=== PATIENT | female | born 1980 | race Caucasian/White ===

== ENCOUNTER 2017-05-15 15:00 | Observation (INO) | payer BC ==
[~2017-05-15] VITALS: Ht 165.1 cm; Wt 84.4 kg
[2017-05-15] MEDS ORDERED: NS IV 1000 ML 1,000 ML ONE (15:19)
[2017-05-15] MEDS ORDERED: ONDANSETRON 4 MG/2 ML (SDV) Z0FRAN ONE (15:20)
[2017-05-15] MEDS ORDERED: PANTOPRAZOLE 40 MG/10 ML (PROTONIX) VIAL ONE (15:21)
[2017-05-15] MEDS ORDERED: fentaNYL INJECTION 100 MCG/2 ML AMP ONE (15:22)
[2017-05-15] MEDS ORDERED: ONDA4TAB8 PO (15:45)
[2017-05-15] MEDS ORDERED: PROM25TA14 PO (15:45)
[2017-05-15 15:51] LABS: BASOPHILS % (AUTO) 0 % (0-10); EOSINOPHILS # (AUTO) 0.1 10^3/uL (0.0-0.3); EOSINOPHILS % (AUTO) 2 % (0-10); LYMPHOCYTES % (AUTO) 31 % (12-44); MEAN CORPUSCULAR HEMOGLOBIN 31 PG (25-34); MEAN CORPUSCULAR HGB CONC 34 G/DL (32-36); MEAN CORPUSCULAR VOLUME 90 FL (80-99); MEAN PLATELET VOLUME 11.8 FL (7.4-10.4); MONOCYTES # (AUTO) 0.7 X 10^3 (0.0-1.0); MONOCYTES % (AUTO) 11 % (0-12); NEUTROPHILS # (AUTO) 3.6 X 10^3 (1.8-7.8); NEUTROPHILS % (AUTO) 56 % (42-75); PLATELET COUNT 180 10^3/uL (130-400); RED BLOOD COUNT 4.87 10^6/uL (4.35-5.85); RED CELL DISTRIBUTION WIDTH 14.4 % (10.0-14.5); WHITE BLOOD COUNT 6.5 10^3/uL (4.3-11.0)
[2017-05-15 16:04] VITALS: BP 112/48
[2017-05-15 16:08] LABS: ALANINE AMINOTRANSFERASE 81 U/L (0-55); ALBUMIN 4.1 GM/DL (3.2-4.5); ANION GAP 18 MMOL/L (5-14); ASPARTATE AMINO TRANSFERASE 68 U/L (5-34); BILIRUBIN,TOTAL 0.7 MG/DL (0.1-1.0); BLOOD UREA NITROGEN 10 MG/DL (7-18); BUN/CREATININE RATIO 14; CALCIUM 9.6 MG/DL (8.5-10.1); CARBON DIOXIDE 19 MMOL/L (21-32); CHLORIDE 104 MMOL/L (98-107); GFR ESTIMATED > 60; GLUCOSE 77 MG/DL (70-105); POTASSIUM 3.3 MMOL/L (3.6-5.0); SODIUM 141 MMOL/L (135-145); TOTAL PROTEIN 7.6 GM/DL (6.4-8.2)
[2017-05-15] MEDS ORDERED: ONDANSETRON 4 MG/2 ML (SDV) Z0FRAN IV NR (16:09)
[2017-05-15] MEDS ORDERED: PANTOPRAZOLE 40 MG/10 ML (PROTONIX) VIAL IV NR (16:10)
[2017-05-15] MEDS ORDERED: LORazepam INJ 2 MG/ML (ATIVAN) VIAL IV PRN (16:15)
[2017-05-15] MEDS: NS IV 1000 ML 1,000 ML IV SCH ×3 (16:17→19:26)
[2017-05-15] MEDS: PROMETHAZINE INJ 25 MG/ML (PHENERGAN) AMP IV PRN ×2 (16:22→19:26)
--- NOTE | 2017-05-15 16:24 | History & Physicial ---
History of Present Illness History of Present Illness Reason for visit/HPI This is a 36 year old female who was seen in the office today with morbid obesity and medical comorbidities related to obesity including diabetes and GERD. She is status post laparoscopic gastric sleeve resection on March 27, 2017 at [facility]. She reports today with complaints of nausea and vomiting for the past 2 1/2 weeks. She reports that over the last 12 days she has not been able to eat or drink without vomiting. She reports that she has tried different anti-nausea medications without relief. She reports that she presented to [facility] last week and received a liter of IV fluids as well as a CT scan which was unremarkable. She reports that despite getting fluids her N/V has continued. She denies any fever/chills as well as no abdominal pain. She also reported that she had a hiatal hernia repair with her gastric sleeve surgery. Date of Admission May 15, 2017 at 15:00 Time Seen by Provider: 14:00 I consulted on this patient on 05/15/17 16:18 Attending Physician Aster Devi MD Admitting Physician Sydney Gold MD Consult Allergies and Home Medications Allergies Coded Allergies: codeine (Unverified Allergy, Unknown, 05/15/17) morphine (Unverified Allergy, Unknown, 05/15/17) Home Medications Ondansetron 4 Mg Tab.rapdis, 4 MG PO Q6H PRN for NAUSEA/VOMITING-1ST LINE, ( Reported) ALTERNATING WITH PROMETHAZINE Promethazine HCl 25 Mg Tablet, 25 MG PO EVERY 6-8 HOURS PRN for NAUSEA/VOMITING- 1ST LINE, (Reported) ALTERNATING WITH ONDANSETRON Past Ijvxjto-Fkcmnj-Cgejdp Hx Patient Social History Smoking Status: Current Everyday Smoker Recent Foreign Travel: No Contact w/other who traveled: No Recent Infectious Disease Expo: No Surgeries HX Surgeries: Yes Surgeries: Abdominal (Lap Gastric Sleeve), Bladder Surgery (Bladder Mesh), Gallbladder, Hysterectomy (complete), Tonsillectomy Neurological Hx Neurological Disorders: Yes (Hand Tremors) Gastrointestinal Gastrointestinal Disorders: Gastroesophageal Reflux Endocrine Endocrine Disorders: Diabetes, Non-Insulin dep Constitutional: no symptoms reported EENTM: no symptoms reported Respiratory: no symptoms reported Cardiovascular: no symptoms reported Gastrointestinal: nausea, vomiting Genitourinary: decreased output Musculoskeletal: no symptoms reported Skin: no symptoms reported Psychiatric/Neurological: No Symptoms Reported All Other Systems Reviewed Negative Unless Noted: Yes Physical Exam Vital Signs Vital Sign - Last 12Hours 05/15/17 05/15/17 15:56 16:04 Temp 98.4 Pulse 86 Resp 22 B/P (MAP) 112/48 Pulse Ox 98 O2 Delivery Room Air Capillary Refill : General Appearance: No Apparent Distress, WD/WN HEENT: PERRL/EOMI Neck: Full Range of Motion, Normal Inspection, Non Tender, Supple Respiratory: Chest Non Tender, Lungs Clear, Normal Breath Sounds, No Accessory Muscle Use, No Respiratory Distress Cardiovascular: Regular Rate, Rhythm, No Edema, No Gallop, No JVD, No Murmur, Normal Peripheral Pulses Gastrointestinal: Normal Bowel Sounds, No Organomegaly, No Pulsatile Mass, Non Tender, Soft Back: Normal Inspection Extremity: Normal Capillary Refill, Normal Inspection, Normal Range of Motion, Non Tender, No Calf Tenderness, No Pedal Edema Neurologic/Psychiatric: Alert, Oriented x3, Normal Mood/Affect Skin: Normal Color, Warm/Dry Lymphatic: No Adenopathy Assessment/Plan Assessment and Plan A 36 year old female with morbid obesity and medical comorbidities related to obesity including diabetes and GERD, who is S/P Laparoscopic gastric sleeve resection on March 27, 2017 in [facility]. She is having persistent Nausea and vomiting as well as dehydration with low urine output. At this time we will admit patient for IV fluid bolus and continued hydration as well as IV nausea medication. We will also start Protonix IV and Levsin IV. She may have clear liquid diet as tolerated and will check CBC and CMP. We will make patient NPO after 0400 on 05/16/17 and schedule her for an EGD with possible balloon dilation tomorrow. Problems: Copy Copies To 1: ASTER DEVI MD; SYDNEY GOLD MD, DUSTIN L APRN May 15, 2017 16:24
[2017-05-15] MEDS: fentaNYL INJECTION 100 MCG/2 ML AMP IV PRN ×2 (17:05→19:45)
[2017-05-15 19:12] VITALS: BP 95/55
[2017-05-15] MEDS ORDERED: ONDANSETRON 4 MG/2 ML (SDV) Z0FRAN IV PRN (20:00)
[2017-05-15] MEDS: METOCLOPRAMIDE INJ 10 MG/2 ML (REGLAN) IV PRN (20:04)
[2017-05-15] MEDS: PANTOPRAZOLE 40 MG/10 ML (PROTONIX) VIAL IV SCH (20:56)
[2017-05-16] VITALS: BP 87/54
[2017-05-16] MEDS: NS IV 1000 ML 1,000 ML IV SCH ×3 (03:12→20:25)
[2017-05-16 04:00] VITALS: BP 91/60
[2017-05-16] MEDS: PROMETHAZINE INJ 25 MG/ML (PHENERGAN) AMP IV PRN ×2 (06:16→13:24)
[2017-05-16] MEDS: fentaNYL INJECTION 100 MCG/2 ML AMP IV PRN ×3 (06:25→22:16)
[2017-05-16 07:49] VITALS: BP 100/66
[2017-05-16] MEDS: PANTOPRAZOLE 40 MG/10 ML (PROTONIX) VIAL IV SCH ×2 (08:41→20:25)
[2017-05-16] MEDS: METOCLOPRAMIDE INJ 10 MG/2 ML (REGLAN) IV PRN (08:54)
--- NOTE | 2017-05-16 09:40 | Progress Note-Pre Operative ---
Pre-Operative Progress Note H&P Reviewed The H&P was reviewed, patient examined and no changes noted. Date Seen by Provider: May 16, 2017 Time Seen by Provider: : Date H&P Reviewed: May 16, 2017 Time H&P Reviewed: :30 Pre-Operative Diagnosis: persistent nausea and vomiting ASTER DEVI MD May 16, 2017 9:40 am
--- NOTE | 2017-05-16 09:40 | Conscious Sedation/ASA ---
Conscious Sedation Pre-Proced Time Reviewed: 09:30 ASA Class: 2 Airway Mallampati Classification: (big sandy appropriate class) I. II. III, IV Lungs Heart ASA score ASA 1: a normal healthy patient ASA 2: a patient with a mild systemic disease (mid diabetes, controlled hypertension, obesity ASA 3: a patient with a severe systemic disease that limits activity (angina , COPD, prior Myocardial infarction) ASA 4: a patient with an incapacitating disease that is a constant threat to life (CHF, renal failure) ASA 5: a moribund patient not expected to survive 24 hrs. (ruptured aneurysm) ASA 6: a declared brain patient whose organs are being harvested. For emergent operations, add the letter E after the classification Grade 2 Sedation Plan: Analgesia, Amnesia, Plan communicated to team members, Discussed options with patient/fam, Discussed risks with patient/fam Note The patient is an appropriate candidate to undergo the planned procedure, sedation, and anesthesia. The patient immediately re-assessed prior to indication. ASTER DEVI MD May 16, 2017 9:40 am
[2017-05-16 12:00] VITALS: BP 98/64
[2017-05-16 15:40] VITALS: BP 97/53
[2017-05-16] MEDS ORDERED: fentaNYL INJECTION 100 MCG/2 ML AMP ONE (16:22)
[2017-05-16] MEDS ORDERED: LIDOCAINE JELLY 2% (XYLOCAINE) 5 ML TUBE ONE (16:22)
[2017-05-16] MEDS ORDERED: HURRICAINE EXT TUBE (BENZOCAINE) ONE (16:23)
[2017-05-16] MEDS ORDERED: MIDAZOLAM 2 MG/2 ML (VERSED) VIAL ONE ×5 (16:23→17:16)
[2017-05-16] MEDS ORDERED: ONDANSETRON 4 MG/2 ML (SDV) Z0FRAN ONE (16:40)
[2017-05-16] MEDS: fentaNYL INJECTION 100 MCG/2 ML AMP IVP PRN ×2 (16:45→16:47)
[2017-05-16] MEDS: MIDAZOLAM 2 MG/2 ML (VERSED) VIAL IVP PRN ×5 (16:46→17:21)
[2017-05-16] MEDS ORDERED: HURRICAINE EXT TUBE (BENZOCAINE) XX PRN (17:00)
[2017-05-16] MEDS ORDERED: LIDOCAINE JELLY 2% (XYLOCAINE) 5 ML TUBE MM PRN (17:00)
--- NOTE | 2017-05-16 17:49 | Progress Note-Post Operative ---
Post-Operative Progess Note Surgeon (s)/Filling Carrier (s) Surgeon ASTER DEVI MD Filling Carrier: none Pre-Operative Diagnosis persistent nausea and vomiting Post-Operative Diagnosis reflux esophagtitis(class B), severe diffuse gastritis and moderate duodenitis, mild mid gastric stricture. Procedure & Operative Findings Date of Procedure 05/16/17 Procedure Performed/Findings EGD with bx and baloon dilatation. Anesthesia Type CS Estimated Blood Loss Estimated blood loss (mL): minimal Specimens/Packing Specimens Removed antrum, GE jxn ASTER DEVI MD May 16, 2017 5:49 pm
[2017-05-16] MEDS ORDERED: PANT40TA2 PO (17:51)
[2017-05-16] MEDS ORDERED: DEXAINTSOL PO (17:51)
--- NOTE | 2017-05-16 17:52 | Discharge Inst-Surgical ---
D/C Lap Instructions-KIDO New, Converted, or Re-Newed RX: RX on Chart Follow Up Appt in 2 weeks Activity as tolerated start clear liquids and slowly advance diet as tolerated take decadron with zofran, take protonix BID for 2 weeks then daily. Avoid Alcohol, Caffeine, Spicy Okay and Acid foods. Drink 64 fluid oz or more of fluids per day. Symptoms to Report: Fever over 101 degree F, Nausea/Vomiting If any problems/questions: Contact your physician or go to Emergency Room ASTER DEVI MD May 16, 2017 5:52 pm
[2017-05-16] MEDS: DEXAMETHASONE 4 MG/ML SDV (DECADRON) IV SCH (18:57)
[2017-05-16 19:35] VITALS: BP 96/60
[2017-05-17 00:25] VITALS: BP 96/52
[2017-05-17] MEDS: DEXAMETHASONE 4 MG/ML SDV (DECADRON) IV SCH ×2 (01:36→11:05)
[2017-05-17] MEDS: fentaNYL INJECTION 100 MCG/2 ML AMP IV PRN ×4 (01:36→13:26)
[2017-05-17 04:00] VITALS: BP 103/55
[2017-05-17] MEDS: NS IV 1000 ML 1,000 ML IV SCH (07:12)
[2017-05-17 08:30] VITALS: BP 98/65
[2017-05-17] MEDS: PANTOPRAZOLE 40 MG/10 ML (PROTONIX) VIAL IV SCH (08:48)
[2017-05-17 13:00] VITALS: BP 109/68
[2017-05-17] MEDS: PROMETHAZINE INJ 25 MG/ML (PHENERGAN) AMP IV PRN (15:26)
[2017-05-17 16:20] VITALS: BP 109/68
== END 2017-05-17 16:30 | disposition home or self-care (01) ==
LOC: UNDOADMOB 15:00 → 4TH 15:00
PROVIDERS: ADMIT Surgery; ATTEND Surgery
DX: K29.70 Gastritis, unspecified, without bleeding (principal); K29.80 Duodenitis without bleeding; E86.0 Dehydration; K21.9 Gastro-esophageal reflux disease without esophagitis; E66.01 Morbid (severe) obesity due to excess calories; E11.9 Type 2 diabetes mellitus without complications; F17.210 Nicotine dependence, cigarettes, uncomplicated; Z98.84 Bariatric surgery status
CPT/HCPCS: 36415; 80053; 85025

== ENCOUNTER 2017-05-20 20:09 | Inpatient (IN) | payer BC ==
[~2017-05-20] VITALS: Ht 165.1 cm; Wt 84.4 kg
[~2017-05-20 20:09] MED LIST: DEXAINTSOL PO; ONDA4TAB8 PO; PANT40TA2 PO; PROM25TA14 PO
--- NOTE | 2017-05-20 20:25 | ED GI ---
General Chief Complaint: Abdominal/GI Problems Stated Complaint: NAUSEA VOMITING PAIN Source of Information: Patient Exam Limitations: No Limitations History of Present Illness Time Seen By Provider: 20:24 Initial Comments U ER with uncontrollable nausea vomiting and epigastric abdominal pain. She had a laparoscopic gastric sleeve gastrectomy done on March 27 at the [facility]. She also had a hiatal hernia.. The past few days she's had uncontrollable nausea and vomiting to the point that she is not eaten for the past 2-3 days. She denies having much to drink during that timeframe either. She reports epigastric and chest discomfort. She was seen here last week admitted as a direct admit by Dr. Levy. She had EGD done which showed esophageal stricture with dilatation. She does not have trouble swallowing anymore but she has uncontrollable nausea that does not allow her to eat. No fevers or chills. She is passing gas. Timing/Duration: 3-4 Days Severity/Quality: Moderate Location: Generalized Abdomen Radiation: No Radiation Activities at Onset: None Associated Symptoms: Nausea/Vomiting Allergies and Home Medications Allergies Coded Allergies: codeine (Unverified Allergy, Unknown, 05/15/17) morphine (Unverified Allergy, Unknown, 05/15/17) Home Medications Dexamethasone 1 Mg/1 Ml Sandra, 1 TSP PO DAILY PRN for PAIN for 60 Days, Ref 0 Mix 4MG/2.5CC water Prescribed by: ASTER LEVY on 05/16/17 1751 Ondansetron 4 Mg Tab.rapdis, 4 MG PO Q6H PRN for NAUSEA/VOMITING-1ST LINE, ( Reported) ALTERNATING WITH PROMETHAZINE Pantoprazole Sodium 40 Mg Tablet., 40 MG PO DAILY, #90 Prescribed by: ASTER LEVY on 05/16/17 1751 Promethazine HCl 25 Mg Tablet, 25 MG PO EVERY 6-8 HOURS PRN for NAUSEA/VOMITING- 1ST LINE, (Reported) ALTERNATING WITH ONDANSETRON Review of Systems Constitutional: see HPI EENTM: No Symptoms Reported Respiratory: No Symptoms Reported Cardiovascular: See HPI Gastrointestinal: See HPI, Abdominal Pain, Nausea Genitourinary: No Symptoms Reported Musculoskeletal: no symptoms reported Skin: no symptoms reported Psychiatric/Neurological: No Symptoms Reported Endocrine: No Symptoms Reported Hematologic/Lymphatic: No Symptoms Reported Past Ghpajiz-Hyqgsy-Jhwhho Hx Patient Social History Type Used: Cigarettes Recent Foreign Travel: No Contact w/Someone Who Travel: No Recent Hopitalizations: No Immunizations Up To Date PED Vaccines UTD: No Seasonal Allergies Seasonal Allergies: No Surgeries HX Surgeries: Yes Surgeries: Abdominal, Bladder Surgery, Gallbladder, Hysterectomy, Tonsillectomy Neurological Hx Neurological Disorders: Yes (Hand Tremors) Gastrointestinal Gastrointestinal Disorders: Gastroesophageal Reflux, Gall Bladder Disease Endocrine Endocrine Disorders: Diabetes, Non-Insulin dep Family Medical History Family Medial History: Diabetes mellitus Hypertension Myocardial infarction Physical Exam Vital Signs VS - Last 72 Hours, by Label 05/20/17 20:22 Temp 97.5 Pulse 70 Resp 16 B/P (MAP) 132/70 Pulse Ox 98 O2 Delivery Room Air Capillary Refill : General Appearance: WD/WN, no apparent distress HEENT: PERRL/EOMI, normal ENT inspection Respiratory: normal breath sounds, no respiratory distress, no accessory muscle use Gastrointestinal: normal bowel sounds, non tender, soft Extremities: normal range of motion, non-tender Neurologic/Psychiatric: alert, normal mood/affect, oriented x 3 Skin: normal color, warm/dry Progress/Results/Core Measures Results/Orders Lab Results Laboratory Tests Test 05/20/17 20:20 05/20/17 20:27 Range/Units White Blood Count 9.3 4.3-11.0 10^3/uL Red Blood Count 4.90 4.35-5.85 10^6/uL Hemoglobin 15.1 11.5-16.0 G/DL Hematocrit 44 35-52 % Mean Corpuscular Volume 89 80-99 FL Mean Corpuscular Hemoglobin 31 25-34 PG Mean Corpuscular Hemoglobin Concent 35 32-36 G/DL Red Cell Distribution Width 14.1 10.0-14.5 % Platelet Count 181 130-400 10^3/uL Mean Platelet Volume 11.8 H 7.4-10.4 FL Neutrophils (%) (Auto) 56 42-75 % Lymphocytes (%) (Auto) 34 12-44 % Monocytes (%) (Auto) 9 0-12 % Eosinophils (%) (Auto) 1 0-10 % Basophils (%) (Auto) 0 0-10 % Neutrophils # (Auto) 5.3 1.8-7.8 X 10^3 Lymphocytes # (Auto) 3.2 1.0-4.0 X 10^3 Monocytes # (Auto) 0.8 0.0-1.0 X 10^3 Eosinophils # (Auto) 0.1 0.0-0.3 10^3/uL Basophils # (Auto) 0.0 0.0-0.1 10^3/uL Sodium Level 140 135-145 MMOL/L Potassium Level 3.0 L 3.6-5.0 MMOL/L Chloride Level 100 98-107 MMOL/L Carbon Dioxide Level 23 21-32 MMOL/L Anion Gap 17 H 5-14 MMOL/L Blood Urea Nitrogen 17 7-18 MG/DL Creatinine 0.80 0.60-1.30 MG/DL Estimat Glomerular Filtration Rate > 60 BUN/Creatinine Ratio 21 Glucose Level 86 70-105 MG/DL Calcium Level 9.7 8.5-10.1 MG/DL Total Bilirubin 1.1 H 0.1-1.0 MG/DL Aspartate Amino Transf (AST/SGOT) 106 H 5-34 U/L Alanine Aminotransferase (ALT/SGPT) 156 H 0-55 U/L Alkaline Phosphatase 52 40-136 U/L Total Protein 7.4 6.4-8.2 GM/DL Albumin 3.9 3.2-4.5 GM/DL Lipase 140 H 8-78 U/L Urine Color JEOVANY H Urine Clarity SLIGHTLY CLOUDY Urine pH 6.5 5-9 Urine Specific [place] 1.020 1.016-1.022 Urine Protein 2+ H NEGATIVE Urine Glucose (UA) NEGATIVE NEGATIVE Urine Ketones 4+ H NEGATIVE Urine Nitrite POSITIVE H NEGATIVE Urine Bilirubin 3+ H NEGATIVE Urine Urobilinogen 12 H NORMAL MG/DL Urine Leukocyte Esterase 2+ H NEGATIVE Urine RBC (Auto) NEGATIVE NEGATIVE Urine RBC NONE /HPF Urine WBC 5-10 H /HPF Urine Squamous Epithelial Cells 5-10 /HPF Urine Crystals NONE /LPF Urine Bacteria LARGE H /HPF Urine Casts NONE /LPF Urine Mucus MODERATE H /LPF Urine Culture Indicated YES My Orders Orders - CHRISTY ORTEGA APRN Cbc With Automated Diff (05/20/17 20:21) Lipase (05/20/17 20:21) Ua Culture If Indicated (05/20/17 20:21) Comprehensive Metabolic Panel (05/20/17 20:21) Saline Lock/Iv-Start (05/20/17 20:21) Ns Iv 1000 Ml (Sodium Chloride 0.9%) (05/20/17 20:30) Prochlorperazine Injection (Compazine In (05/20/17 20:30) Diphenhydramine Injection (Benadryl Inje (05/20/17 20:30) Scopolamine Patch (Transderm-Scop Patch) (05/20/17 20:45) Urine Culture (05/20/17 20:27) Lorazepam Injection (Ativan Injection) (05/20/17 20:41) Lorazepam Injection (Ativan Injection) (05/20/17 21:00) Medications Given in ED Current Medications Medications Dose Ordered Sig/Quiana Route Start Time Stop Time Status Last Admin Dose Admin Diphenhydramine HCl 25 mg ONCE ONCE IVP 05/20/17 20:30 05/20/17 20:31 DC 05/20/17 20:32 25 MG Lorazepam 0.5 mg ONCE ONCE IVP 05/20/17 21:00 05/20/17 21:01 DC 05/20/17 20:53 0.5 MG Prochlorperazine Edisylate 10 mg ONCE ONCE IV 05/20/17 20:30 05/20/17 20:31 DC 05/20/17 20:33 10 MG Vital Signs/I&O Vital Sign - Last 12Hours 05/20/17 20:22 Temp 97.5 Pulse 70 Resp 16 B/P (MAP) 132/70 Pulse Ox 98 O2 Delivery Room Air Departure Communication Time/Spoke to Admitting Phy: 21:[address] Jimenez. We'll admit the patient, IV antiemetics, pain control, fluids and potassium replacement. Consult Dr. Levy in the morning. Progress Notes 2103-patient has had a dystonic reaction with uncontrollable movements of arms and legs after receiving the Benadryl and Compazine. With 0.5 mg of IV Ativan she would unfortunately need to wait this out. We will admit for the urinary tract infection and pancreatitis Impression Impression: Primary Impression: Urinary tract infection Additional Impressions: Acute pancreatitis Intractable nausea and vomiting Disposition: ADMITTED INPATIENT Condition: Stable Decision to Admit Reason: Admit from ER (General) Decision to Admit/Date: May 20, 2017 Time/Decision to Admit Time: 21:06 Departure-Patient Inst. Referrals: KARMA LAW MD (PCP/Family) Primary Care Physician CHRISTY ORTEGA APRN May 20, 2017 20:25
[2017-05-20 20:27] LABS: BASOPHILS % (AUTO) 0 % (0-10); EOSINOPHILS # (AUTO) 0.1 10^3/uL (0.0-0.3); EOSINOPHILS % (AUTO) 1 % (0-10); LYMPHOCYTES # (AUTO) 3.2 X 10^3 (1.0-4.0); LYMPHOCYTES % (AUTO) 34 % (12-44); MEAN CORPUSCULAR HEMOGLOBIN 31 PG (25-34); MEAN CORPUSCULAR HGB CONC 35 G/DL (32-36); MEAN CORPUSCULAR VOLUME 89 FL (80-99); MEAN PLATELET VOLUME 11.8 FL (7.4-10.4); MONOCYTES # (AUTO) 0.8 X 10^3 (0.0-1.0); MONOCYTES % (AUTO) 9 % (0-12); NEUTROPHILS # (AUTO) 5.3 X 10^3 (1.8-7.8); NEUTROPHILS % (AUTO) 56 % (42-75); PLATELET COUNT 181 10^3/uL (130-400); RED CELL DISTRIBUTION WIDTH 14.1 % (10.0-14.5); WHITE BLOOD COUNT 9.3 10^3/uL (4.3-11.0)
[2017-05-20] MEDS ORDERED: NS IV 1000 ML 1,000 ML IV SCH (20:30)
[2017-05-20] MEDS ORDERED: diphenhydrAMINE 50 MG/ML INJ (BENADRYL) IVP ONE (20:30)
[2017-05-20] MEDS ORDERED: PROCHLORPERAZINE 10 MG/2ML INJ (COMPAZINE) IV ONE (20:30)
[2017-05-20 20:33] LABS: BILIRUBIN,URINE 3+ (NEGATIVE); KETONES,URINE 4+ (NEGATIVE); LEUKOCYTE ESTERASE ,URINE 2+ (NEGATIVE); NITRITE,URINE POSITIVE (NEGATIVE); PH,URINE 6.5 (5-9); PROTEIN,URINE 2+ (NEGATIVE); UROBILINOGEN,URINE 12 MG/DL (NORMAL)
[2017-05-20] MEDS ORDERED: LORazepam INJ 2 MG/ML (ATIVAN) VIAL ONE (20:41)
[2017-05-20] MEDS ORDERED: SCOPOLAMINE 1.5 MG (TRANSDERM-SCOP) PATCH TD ONE (20:45)
[2017-05-20 20:46] LABS: ALANINE AMINOTRANSFERASE 156 U/L (0-55); ALBUMIN 3.9 GM/DL (3.2-4.5); ANION GAP 17 MMOL/L (5-14); ASPARTATE AMINO TRANSFERASE 106 U/L (5-34); BILIRUBIN,TOTAL 1.1 MG/DL (0.1-1.0); BLOOD UREA NITROGEN 17 MG/DL (7-18); BUN/CREATININE RATIO 21; CALCIUM 9.7 MG/DL (8.5-10.1); CARBON DIOXIDE 23 MMOL/L (21-32); CHLORIDE 100 MMOL/L (98-107); GFR ESTIMATED > 60; GLUCOSE 86 MG/DL (70-105); LIPASE 140 U/L (8-78); SODIUM 140 MMOL/L (135-145); TOTAL PROTEIN 7.4 GM/DL (6.4-8.2)
[2017-05-20] MEDS ORDERED: LORazepam INJ 2 MG/ML (ATIVAN) VIAL IVP ONE (21:00)
[2017-05-20 21:45] VITALS: BP 95/58
[2017-05-20] MEDS ORDERED: ONDANSETRON 4 MG/2 ML (SDV) Z0FRAN IV PRN (23:00)
[2017-05-20] MEDS ORDERED: PROMETHAZINE 25 MG (PHENERGAN) SUPP PR PRN (23:00)
[2017-05-20] MEDS ORDERED: SCOPOLAMINE 1.5 MG (TRANSDERM-SCOP) PATCH TOP SCH (23:00)
[2017-05-20] MEDS: cefTRIAXone INJECTION 1,000 MG in NS (IVPB) 50 ML IV SCH (23:11)
[2017-05-20] MEDS: NS W/KCL 40 MEQ/L 1,000 ML IV SCH (23:11)
[2017-05-20] MEDS: PANTOPRAZOLE 40 MG/10 ML (PROTONIX) VIAL IV SCH (23:11)
[2017-05-21] VITALS: BP 100/62
[2017-05-21 04:00] VITALS: BP 90/60
[2017-05-21 05:50] LABS: ALANINE AMINOTRANSFERASE 119 U/L (0-55); ANION GAP 15 MMOL/L (5-14); ASPARTATE AMINO TRANSFERASE 81 U/L (5-34); BILIRUBIN,TOTAL 0.6 MG/DL (0.1-1.0); BLOOD UREA NITROGEN 15 MG/DL (7-18); BUN/CREATININE RATIO 23; CARBON DIOXIDE 20 MMOL/L (21-32); CHLORIDE 108 MMOL/L (98-107); CREATININE SERUM 0.64 MG/DL (0.60-1.30); GFR ESTIMATED > 60; GLUCOSE 73 MG/DL (70-105); LIPASE 132 U/L (8-78); POTASSIUM 3.3 MMOL/L (3.6-5.0); SODIUM 143 MMOL/L (135-145); TOTAL PROTEIN 5.3 GM/DL (6.4-8.2)
[2017-05-21 08:00] VITALS: BP 85/48
[2017-05-21] MEDS: NS W/KCL 40 MEQ/L 1,000 ML IV SCH ×3 (08:19→22:56)
[2017-05-21] MEDS: PANTOPRAZOLE 40 MG/10 ML (PROTONIX) VIAL IV SCH ×2 (08:24→20:23)
[2017-05-21] MEDS: PROMETHAZINE INJ 25 MG/ML (PHENERGAN) AMP IVP PRN (08:35)
[2017-05-21] MEDS ORDERED: PANT40TA3 PO (09:12)
[2017-05-21] MEDS ORDERED: DEXA4TAB PO (09:12)
[2017-05-21] MEDS ORDERED: ONDA4TAB11 PO (09:12)
[2017-05-21 12:00] VITALS: BP 104/68
[2017-05-21] MEDS ORDERED: DEXAMETHASONE PF 10 MG/ML (DECADRON) VIAL IV SCH (12:15)
[2017-05-21] MEDS: ONDANSETRON 4 MG/2 ML (SDV) Z0FRAN IV PRN (12:47)
[2017-05-21] MEDS: THIAMINE 100 MG/ML 2 ML (VITAMIN B-1) VIAL IV SCH (12:49)
[2017-05-21] MEDS: fentaNYL INJECTION 100 MCG/2 ML AMP IV PRN ×2 (14:22→20:23)
[2017-05-21] MEDS: LORazepam INJ 2 MG/ML (ATIVAN) VIAL IVP PRN ×2 (15:27→21:53)
[2017-05-21] MEDS: CATHETER FLUSH 10 ML SYR IV PRN (15:27)
--- NOTE | 2017-05-21 15:29 | History & Physical-Hospitalist ---
HPI History of Present Illness: HPI/Chief Complaint Patient is a 36-year-old white female who presented to the emergency room yesterday complaining of uncontrollable nausea vomiting and epigastric pain. She had had a laparoscopic gastric sleeve on March 27 at [facility] she then began to have difficulties swallowing. She had an admission last week under Dr. Levy for dysphagia and chest discomfort. He performed an EGD and found esophageal inflammation and relative stricture. She then underwent dilatation. She was able to swallow but the nausea soon returned. She had used Zofran ODT 's for or 8 mg and alternated that with the Phenergan 25 mg with little improvement. She was in the emergency room yesterday and had a reaction to Compazine with dystonia. She is also found to have a urinary tract infection. Laboratory suggested a very mild pancreatitis and hepatitis. Source: patient Exam Limitations: no limitations Date Seen 05/21/17 Time Seen by Provider: 15:26 Attending Physician Reema Jimenez Lisa A MD Referring Physician Date of Admission May 20, 2017 at 21:24 Home Medications & Allergies Home Medications Reviewed patient Home Medication Reconciliation Form Allergies Allergies Coded Allergies codeine (Unverified Allergy, Unknown, 05/15/17) morphine (Unverified Allergy, Unknown, 05/15/17) prochlorperazine (Verified Allergy, Unknown, 05/20/17) dystonic reaction Past Bgzaqtb-Gbzsqj-Ifwdfw Hx Patient Social History Alcohol Use: Denies Use Recreational Drug Use: No Smoking Status: Current Everyday Smoker Type Used: Cigarettes Physical Abuse Screen: No Sexual Abuse: No Recent Foreign Travel: No Contact w/other who traveled: No Recent Hopitalizations: No Recent Infectious Disease Expo: No Seasonal Allergies Seasonal Allergies: No Surgeries HX Surgeries: Yes Surgeries: Abdominal, Bladder Surgery, Gallbladder, Hysterectomy, Tonsillectomy Neurological Hx Neurological Disorders: Yes (Hand Tremors) Gastrointestinal Gastrointestinal Disorders: Gastroesophageal Reflux, Gall Bladder Disease Endocrine Endocrine Disorders: Diabetes, Non-Insulin dep Family Medical History Family Hx: Diabetes mellitus Hypertension Myocardial infarction Review of Systems Constitutional: see HPI, malaise EENTM: no symptoms reported Respiratory: no symptoms reported Cardiovascular: no symptoms reported Gastrointestinal: dysphagia, heartburn, nausea, vomiting Genitourinary: no symptoms reported Musculoskeletal: no symptoms reported Skin: no symptoms reported Psychiatric/Neurological: No Symptoms Reported Physical Exam Physical Exam Vital Signs Vital Sign - Last 12Hours 05/20/17 20:22 Temp 97.5 Pulse 70 Resp 16 B/P (MAP) 132/70 Pulse Ox 98 O2 Delivery Room Air Capillary Refill : Less Than 3 Seconds General Appearance: Mild Distress Eyes: Bilateral Eye Normal Inspection HEENT: Normal ENT Inspection Neck: Normal Inspection Respiratory: Chest Non Tender, Lungs Clear, Normal Breath Sounds, No Accessory Muscle Use, No Respiratory Distress Cardiovascular: Regular Rate, Rhythm, No Edema, No Gallop, No JVD Gastrointestinal: Abnormal Bowel Sounds (decreased) Extremity: Normal Capillary Refill, Normal Inspection, Normal Range of Motion, Non Tender, No Calf Tenderness, No Pedal Edema Neurologic/Psychiatric: Alert, Oriented x3, No Motor/Sensory Deficits, Normal Mood/Affect Skin: Normal Color, Warm/Dry Lymphatic: No Adenopathy Comments It is noted that the lipase was modestly elevated at 140/78 and there also was very modest elevation of the ALT and AST. Results Results/Procedures Lab Laboratory Tests 05/20/17 20:20 05/21/17 04:40 Assessment/Plan Admission Diagnosis Urinary tract infection. 2.dysphagia. 3.recent placement of gastric sleeve. 4.intractable nausea and vomiting following this intervention, etiology unclear Assessment and Plan Clear liquid diet. IV fluids. Clinical Quality Measures DVT/VTE Risk/Contraindication: Risk Factor Score Per Nursin RFS Level Per Nursing on Admit: 3=High DENNIS SPENCER MD May 21, 2017 15:29
--- NOTE | 2017-05-21 16:00 | CONSULTATION REPORT ---
DATE OF CONSULTATION: 05/21/2017 ATTENDING PRIMARY CARE PHYSICIAN: Dr. Sydney Gold. Mrs. Paris Ellison is a 36-year-old female who we had seen recently. She has a history of morbid obesity, as well as medical comorbidities including, diabetes and gastroesophageal reflux disease. She is status post gastric sleeve resection on 03/27/2017 at [facility]. She reports that she has had nausea and vomiting for the past 4 weeks. In the past 2 weeks this has been much more severe. She has tried a number of different antinausea medications without any relief. She was admitted recently and started on IV fluids, as well as IV Protonix and antinausea medications. She also underwent an EGD which 05/16/2017 which showed a reflux esophagitis, class B, as well as diffuse gastritis, moderate duodenitis and mild mid gastric stricture which was dilated to 19 mm. She was placed on a clear liquid diet and was able to take in approximately 60 mL of fluid every half-hour. She was then discharged home. She reports that after going home, she did okay for some amount of time; however, she felt recurrence of symptoms including the nausea and vomiting. She states that she tried to take her medications; however, due to the nausea and vomiting wound normally throw up the medications. She does have a history of smoking and states that she did smoke once during the time at home. The majority of what she throws up is saliva and foam. No hematemesis, nor coffee-ground emesis. PAST MEDICAL HISTORY: 1. Gastroesophageal reflux disease. 2. Aau-etshxhc-ugwlwjqpj diabetes. PAST SURGERIES: 1. Laparoscopic gastric sleeve resection. 2. Bladder suspension. 3. Laparoscopic cholecystectomy. 4. Total hysterectomy. 5. Tonsillectomy. ALLERGIES: 1. Codeine 2. morphine MEDICATIONS: 1. Zofran 4 mg q.4 hours p.r.n. 2. Phenergan 12.5 mg every p.r.n. 3. Protonix 40 mg b.i.d. SOCIAL HISTORY: Positive smoke, states that she used to drink alcohol; however, has not been several months. FAMILY HISTORY: Noncontributory. VITAL SIGNS: Temperature 96.3, blood pressure 85/48, pulse 40, respirations 16, pulse ox 97% on room air. REVIEW OF SYSTEMS: This is a guarded female secondary to her nausea and vomiting. She is currently not vomiting and is awake and alert and answers all questions appropriately. She is not experiencing any shortness of breath nor difficulty breathing. Epigastric discomfort including a burning sensation. Persistent frequent episodes of nausea as well as vomiting of saliva foam. No hematemesis, no coffee-ground emesis. A small bowel movement. Weight loss postop. No fever or chills. All other review of systems negative. PHYSICAL EXAMINATION: CHEST: Good breath sounds bilaterally. Clear. HEART: Regular. No murmurs. EXTREMITIES: No lower extremity edema. Negative Willam sign. HEENT: No scleral icterus. No cervical lymphadenopathy. ABDOMEN: Soft, nontender, nondistended. SKIN: Warm and dry. LABS: WBC 9.3, hemoglobin 15.1. Total bilirubin 0.6, AST 81, ALT 119, alkaline phosphatase 37, lipase 132, urine analysis nitrite positive, 2+ leukocyte esterase and large amount of bacteria. ASSESSMENT AND PLAN: 36-year-old female with persistent nausea and vomiting status post gastric sleeve resection. She also has severe dehydration and a urinary tract infection. We will continue with conservative management including IV fluids, as well as IV Zofran, Phenergan and Decadron. We will also proceed with Ativan for her anxiety on a p.r.n. basis. We will also start IV thiamine due to a potential deficiency. Once she does not have any nausea and vomiting and can tolerate liquids, as well as medications, we will discharge her home. The importance of medical compliance was explained to the patient, including definite smoking cessation for this phase of her postop. She also needs to avoid alcohol, caffeinated beverages, as well as spicy, greasy and acidic foods. Over time, these symptoms will resolve on their own. However, at this time, her symptoms are exaggerated due to the surgery itself, as well as severe gastritis. Job ID: [id number] Dictated Date: 05/21/2017 13:02:16 Trade Mark Examiner Date: 05/21/2017 15:38:07/jeet HARVEY
[2017-05-21 16:25] VITALS: BP 113/58
[2017-05-21 19:37] VITALS: BP 106/57
[2017-05-21] MEDS: cefTRIAXone INJECTION 1,000 MG in NS (IVPB) 50 ML IV SCH (22:56)
[2017-05-22] VITALS (7 sets, daily range): BP systolic 85–94; BP diastolic 43–81
[2017-05-22] MEDS: fentaNYL INJECTION 100 MCG/2 ML AMP IV PRN ×7 (01:58→22:20)
[2017-05-22] MEDS: NS W/KCL 40 MEQ/L 1,000 ML IV SCH ×2 (09:35→18:57)
[2017-05-22] MEDS: LORazepam INJ 2 MG/ML (ATIVAN) VIAL IVP PRN ×2 (09:35→23:41)
[2017-05-22] MEDS: PANTOPRAZOLE 40 MG/10 ML (PROTONIX) VIAL IV SCH ×2 (09:35→20:03)
[2017-05-22] MEDS: THIAMINE 100 MG/ML 2 ML (VITAMIN B-1) VIAL IV SCH (09:35)
[2017-05-22] MEDS: PROMETHAZINE INJ 25 MG/ML (PHENERGAN) AMP IVP PRN (11:13)
--- NOTE | 2017-05-22 11:32 | Progress Note-Hospitalist ---
Standard Progress Note Progress Notes/Assess & Plan Date Seen 05/22/17 Time Seen by Provider: 11:28 Diagnosis Urinary tract infection. 2.dysphagia. 3.recent placement of gastric sleeve. 4.intractable nausea and vomiting following this intervention, etiology unclear Assess & Plan/Chief Complaint The patient reports that she is modestly better today. She continues to have nausea. She reports that the pain is somewhat relieved after her fentanyl injection and accompanying Ativan. She had been taking Decadron at home when she was able to swallow with. I am not clear as to the benefits in this circumstance. Decadron has been associated with ulcerative esophagitis, nausea , pancreatitis, and elevation of transaminases. She believes that the scopolamine patch has been somewhat helpful. She has had 2 stools since yesterday. Physical exam: Lungs are clear to auscultation. CV is regular without murmur. The abdomen is soft. Bowel sounds are hypoactive. Extremities show no pedal edema. Impression: Persistent nausea and vomiting. 2.ulcerative esophagitis. 3.mild pancreatitis 4.mild elevation of transaminases. 5.recent laparoscopic gastric sleeve. Plan: Adjustment of medications. Continue IV fluids and anti-nausea measures. Offer small soft diet feedings Labs Laboratory Tests 05/20/17 20:20 05/21/17 04:40 DENNIS SPENCER MD May 22, 2017 11:32
[2017-05-22 11:51] LABS: ALBUMIN 3.1 GM/DL (3.2-4.5); BILIRUBIN,DIRECT 0.2 MG/DL (0.0-0.3); BILIRUBIN,INDIRECT 0.3 MG/DL; BILIRUBIN,TOTAL 0.5 MG/DL (0.1-1.0); TOTAL PROTEIN 5.6 GM/DL (6.4-8.2)
[2017-05-22] MEDS: ONDANSETRON 4 MG/2 ML (SDV) Z0FRAN IV PRN (14:12)
[2017-05-23] MEDS: NS W/KCL 40 MEQ/L 1,000 ML IV SCH ×2 (00:11→03:41)
[2017-05-23] MEDS: CATHETER FLUSH 10 ML SYR IV PRN (00:11)
[2017-05-23 08:00] VITALS: BP 97/56
[2017-05-23] MEDS: fentaNYL INJECTION 100 MCG/2 ML AMP IV PRN (08:59)
[2017-05-23] MEDS: PANTOPRAZOLE 40 MG/10 ML (PROTONIX) VIAL IV SCH (08:59)
[2017-05-23] MEDS: ONDANSETRON 4 MG/2 ML (SDV) Z0FRAN IV PRN (09:06)
[2017-05-23] MEDS: THIAMINE 100 MG/ML 2 ML (VITAMIN B-1) VIAL IV SCH (09:44)
[2017-05-23 10:09] LABS: BASOPHILS % (AUTO) 0 % (0-10); EOSINOPHILS # (AUTO) 0.2 10^3/uL (0.0-0.3); EOSINOPHILS % (AUTO) 3 % (0-10); LYMPHOCYTES # (AUTO) 3.1 X 10^3 (1.0-4.0); LYMPHOCYTES % (AUTO) 46 % (12-44); MEAN CORPUSCULAR HEMOGLOBIN 31 PG (25-34); MEAN CORPUSCULAR HGB CONC 33 G/DL (32-36); MEAN CORPUSCULAR VOLUME 93 FL (80-99); MEAN PLATELET VOLUME 11.8 FL (7.4-10.4); MONOCYTES # (AUTO) 0.5 X 10^3 (0.0-1.0); MONOCYTES % (AUTO) 7 % (0-12); NEUTROPHILS % (AUTO) 44 % (42-75); PLATELET COUNT 153 10^3/uL (130-400); RED BLOOD COUNT 4.49 10^6/uL (4.35-5.85); RED CELL DISTRIBUTION WIDTH 14.6 % (10.0-14.5); WHITE BLOOD COUNT 6.8 10^3/uL (4.3-11.0)
[2017-05-23 10:31] LABS: ALANINE AMINOTRANSFERASE 158 U/L (0-55); ALBUMIN 3.3 GM/DL (3.2-4.5); ANION GAP 8 MMOL/L (5-14); ASPARTATE AMINO TRANSFERASE 92 U/L (5-34); BILIRUBIN,TOTAL 0.5 MG/DL (0.1-1.0); BLOOD UREA NITROGEN 7 MG/DL (7-18); BUN/CREATININE RATIO 10; CALCIUM 9.2 MG/DL (8.5-10.1); CARBON DIOXIDE 27 MMOL/L (21-32); CHLORIDE 108 MMOL/L (98-107); CREATININE SERUM 0.72 MG/DL (0.60-1.30); GFR ESTIMATED > 60; GLUCOSE 108 MG/DL (70-105); LIPASE 96 U/L (8-78); POTASSIUM 4.3 MMOL/L (3.6-5.0); SODIUM 143 MMOL/L (135-145)
[2017-05-23] MEDS ORDERED: DICYCLOMINE 10 MG (BENTYL) CAP PO SCH (11:00)
[2017-05-23] MEDS ORDERED: HYOSCYAMINE 0.125 MG (LEVSIN) TAB PO PRN (11:00)
--- NOTE | 2017-05-23 11:04 | Progress Note-Hospitalist ---
Progress Note HPI/CC on Admission Patient is a 36-year-old white female who presented to the emergency room yesterday complaining of uncontrollable nausea vomiting and epigastric pain. She had had a laparoscopic gastric sleeve on March 27 at [facility] she then began to have difficulties swallowing. She had an admission last week under Dr. Levy for dysphagia and chest discomfort. He performed an EGD and found esophageal inflammation and relative stricture. She then underwent dilatation. She was able to swallow but the nausea soon returned. She had used Zofran ODT 's for or 8 mg and alternated that with the Phenergan 25 mg with little improvement. She was in the emergency room yesterday and had a reaction to Compazine with dystonia. She is also found to have a urinary tract infection. Laboratory suggested a very mild pancreatitis and hepatitis. 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 Pt states her pain is better, but has been given pain meds Pt confirmed scope last Sunday at [facility] with Dr. Levy. Pt states that she had much redness and inflammation. Pt states that she has not thrown up today, but was nauseated and given Zofran Pt states that she has been ambulating a bit and stands by the window. Physical exam stable. Pt states that she had two loose BMs yesterday AFVSS, Pleasant, O x 3 RRR, CTAB No edema Assessment: severe dehydration due to unable to tolerate by mouth fluid and nutrition following gastric sleeve procedure early April 2017 performed in [place] Acute pancreatitis Acute UTI Plan: Ambulate halls Confer with Dr. Levy on plan Continue pain meds and Zofran Place midline and give IVF daily to maintain status to be able to be DC today Scribed by Sandy Balderrama under the direct supervision of Dr. Jimenez. JOSÉ JIMENEZ DO May 23, 2017 11:04
[2017-05-23] MEDS ORDERED: HYOS0.1296 PO (11:32)
[2017-05-23] MEDS ORDERED: SCOP1PAT TOP (11:32)
[2017-05-23] MEDS ORDERED: FEN12TD TD (11:32)
[2017-05-23] MEDS ORDERED: ONDA4TAB11 PO (11:32)
[2017-05-23] MEDS ORDERED: PROM25SU44 RC (11:32)
[2017-05-23] MEDS ORDERED: fentaNYL PATCH 12 MCG (DURAGESIC) TD SCH (11:45)
[2017-05-23] MEDS ORDERED: fentaNYL INJECTION 100 MCG/2 ML AMP IV PRN (12:00)
--- NOTE | 2017-05-23 12:32 | Progress Note (SOAP) ---
Subjective Date Seen by Provider: May 23, 2017 Time Seen by Provider: 12:20 Subjective/Events-last exam doing better. tolerating liquids, much less nausea. states has epigastric pain due to possible spasms. Objective Exam Vital Signs Date Time Temp Pulse Resp B/P (MAP) Pulse Ox O2 Delivery O2 Flow Rate FiO2 05/23/17 08:00 98.4 58 16 97/56 98 Room Air 05/22/17 23:10 96.6 61 20 90/55 97 Room Air 05/22/17 19:58 96.8 56 20 89/49 98 Room Air 05/22/17 15:42 97.3 53 20 94/50 95 Room Air I & O 05/23/17 06:59 Intake Total 2390 ml Output Total 2375 ml Balance 15 ml Capillary Refill : Less Than 3 Seconds General Appearance: No Apparent Distress HEENT: PERRL/EOMI Neck: Full Range of Motion Respiratory: Chest Non Tender, Lungs Clear Cardiovascular: Regular Rate, Rhythm, No Murmur Gastrointestinal: normal bowel sounds, soft Extremity: Normal Capillary Refill Neurologic/Psychiatric: Alert, Oriented x3 Skin: Normal Color Lymphatic: No Adenopathy Results Lab Laboratory Tests 05/23/17 09:55: White Blood Count 6.8, Red Blood Count 4.49, Hemoglobin 13.9, Hematocrit 42, Mean Corpuscular Volume 93, Mean Corpuscular Hemoglobin 31, Mean Corpuscular Hemoglobin Concent 33, Red Cell Distribution Width 14.6H, Platelet Count 153, Mean Platelet Volume 11.8H, Neutrophils (%) (Auto) 44, Lymphocytes (%) (Auto) 46H, Monocytes (%) (Auto) 7, Eosinophils (%) (Auto) 3, Basophils (%) (Auto) 0, Neutrophils # (Auto) 3.0, Lymphocytes # (Auto) 3.1, Monocytes # (Auto) 0.5, Eosinophils # (Auto) 0.2, Basophils # (Auto) 0.0, Sodium Level 143, Potassium Level 4.3, Chloride Level 108H, Carbon Dioxide Level 27, Anion Gap 8, Blood Urea Nitrogen 7, Creatinine 0.72, Estimat Glomerular Filtration Rate > 60, BUN/ Creatinine Ratio 10, Glucose Level 108H, Calcium Level 9.2, Total Bilirubin 0.5 , Aspartate Amino Transf (AST/SGOT) 92H, Alanine Aminotransferase (ALT/SGPT) 158H, Alkaline Phosphatase 55, Total Protein 6.0L, Albumin 3.3, Lipase 96H Microbiology 05/20/17 Urine Culture - Final, Complete Assessment/Plan Assessment/Plan Assess & Plan/Chief Complaint persistent nausea/vomiting. improving slowly over time. again now tolerating liquids at >60ml/hr. nausea and pain under control. will proceed with midline and PRN IV fluid and med administratrion. importance of smoking cessation noted. Clinical Quality Measures DVT/VTE Risk/Contraindication: Risk Factor Score Per Nursin RFS Level Per Nursing on Admit: 3=High ASTER DEVI MD May 23, 2017 12:32 pm
[2017-05-23] MEDS: LORazepam INJ 2 MG/ML (ATIVAN) VIAL IVP PRN (12:34)
[2017-05-23 15:10] VITALS: BP 97/56
[2017-05-26] MEDS ORDERED: FENTANYL PATCH REMOVAL TP SCH (11:44)
--- NOTE | 2017-05-31 12:10 | Discharge Summary-Hospitalist ---
Diagnosis/Chief Complaint Date of Admission May 20, 2017 at 21:24 Date of Discharge May 23, 2017 at 14:25 Admission Diagnosis Urinary tract infection. 2.dysphagia. 3.recent placement of gastric sleeve. 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 Pt states her pain is better, but has been given pain meds Pt confirmed scope last Sunday at [facility] with Dr. Levy. Pt states that she had much redness and inflammation. Pt states that she has not thrown up today, but was nauseated and given Zofran Pt states that she has been ambulating a bit and stands by the window. Physical exam stable. Pt states that she had two loose BMs yesterday AFVSS, Pleasant, O x 3 RRR, CTAB No edema Assessment: severe dehydration due to unable to tolerate by mouth fluid and nutrition following gastric sleeve procedure early April 2017 performed in [place] Acute pancreatitis Acute UTI Plan: Ambulate halls Confer with Dr. Levy on plan Continue pain meds and Zofran Place midline and give IVF daily to maintain status to be able to be DC today Scribed by Sandy Balderrama under the direct supervision of Dr. Hills. Reason Hospital Visit/Course Patient is a 36-year-old white female who presented to the emergency room yesterday complaining of uncontrollable nausea vomiting and epigastric pain. She had had a laparoscopic gastric sleeve on March 27 at [facility] she then began to have difficulties swallowing. She had an admission last week under Dr. Levy for dysphagia and chest discomfort. He performed an EGD and found esophageal inflammation and relative stricture. She then underwent dilatation. She was able to swallow but the nausea soon returned. She had used Zofran ODT 's for or 8 mg and alternated that with the Phenergan 25 mg with little improvement. She was in the emergency room yesterday and had a reaction to Compazine with dystonia. She is also found to have a urinary tract infection. Laboratory suggested a very mild pancreatitis and hepatitis. Hospital course: patient had a lengthy hospital course when she was admitted via ER for inability to tolerate PO fluids or nutrition following a gastric bypass procedure in . Dr Levy was consulted and IVF and IV pain meds were initiated. Empiric abx was initiated and maintained during hospital course. Pancreatitis was managed with bowel rest and gastritis was treated with empiric PPI. Overall patient was able to maintain fluids at the time of DC and Fentanyl patch was initiated and close f/u with PCP was arranged after I spoke to Dr Gold and she was DC in improved condition. Discharge Summary Discharge Physical Examination Allergies: Coded Allergies: codeine (Unverified Allergy, Unknown, 05/15/17) morphine (Unverified Allergy, Unknown, 05/15/17) prochlorperazine (Verified Allergy, Unknown, 05/20/17) dystonic reaction Hospital Course Labs (last 24 hrs) Microbiology 05/20/17 Urine Culture - Final, Complete Discharge Home Medications: Active Scripts Active Promethazine Suppository (Promethazine HCl) 25 Mg Supp.rect 25 Mg RC Q6H Duragesic Patch 12MCG (Fentanyl) 12 Mcg Patch 12 Mcg TD Q72H Transderm-Scop (Scopolamine) 1 Each Patch.td72 1.5 Mg TOP Q72H Oscimin (Hyoscyamine Sulfate) 0.125 Mg Tablet 0.125 Mg PO Q4H PRN Ondansetron Odt (Ondansetron) 4 Mg Tab.rapdis 4 Mg PO Q4H PRN Reported Dexamethasone 4 Mg Tablet 4 Mg PO QID PRN Pantoprazole Sodium 40 Mg Tablet.dr 40 Mg PO DAILY Instructions to patient/family Please see electonic discharge instructions given to patient. Clinical Quality Measures DVT/VTE Risk/Contraindication: Risk Factor Score Per Nursin RFS Level Per Nursing on Admit: 3=High JOSÉ HILLS DO May 31, 2017 12:10
== END 2017-05-23 14:25 | disposition home or self-care (01) | DRG 640 ==
LOC: EDUNIT# 20:09 → ER 20:11 → 4TH 21:24
PROVIDERS: ADMIT Internal Medicine; ATTEND Internal Medicine
DX: E86.0 Dehydration (principal); K91.0 Vomiting following gastrointestinal surgery; K85.90 Acute pancreatitis without necrosis or infection, unspecified; N39.0 Urinary tract infection, site not specified; K75.9 Inflammatory liver disease, unspecified; K29.70 Gastritis, unspecified, without bleeding; K22.10 Ulcer of esophagus without bleeding; E11.9 Type 2 diabetes mellitus without complications; K21.9 Gastro-esophageal reflux disease without esophagitis; K44.9 Diaphragmatic hernia without obstruction or gangrene; R25.8 Other abnormal involuntary movements; F17.210 Nicotine dependence, cigarettes, uncomplicated; T43.3X5A Adverse effect of phenothiazine antipsychotics and neuroleptics, initial encounter; Z98.84 Bariatric surgery status
CPT/HCPCS: 36415; 76937; 80053; 80076; 81000; 83690; 85025; 87088; 96361; 96374; 96375